=== PATIENT | male | born 1970 | race Caucasian/White ===

== ENCOUNTER 2018-05-15 08:14 | Emergency (ER) | payer SELFPAY ==
[2018-05-15] MEDS ORDERED: XYLOCAINE 1% MPF 5 mL INFILTRATI ONE (09:51)
[2018-05-15] MEDS ORDERED: IBUPROFEN PO ONE (09:51)
--- NOTE | 2018-05-15 09:58 | Emergency Department Report ---
Addendum entered and electronically signed by AME WAYNE PA 05/15/18 10:28: Patient reported to nursing staff that he has had his tetanus shot Mar 2018. Therefore patient does not need tetanus shot. Original Note: ED Laceration HPI - HPI Chief Complaint: Wound/Laceration Stated Complaint: CUT LEFT HAND Time Seen by Provider: 05/15/18 09:51 Occurred When: Today Severity: mild Laceration Symptoms: Yes Pain, No Foreign Body Sensation, No Numbness, No Weakness Other History: 48-year-old male comes in with left hand 2 inch laceration. Patient reports that he was cutting with a saw at home this morning when he cut his left hand. Patient reports he is prediabetic. Complains of pain 8 out of 10. Currently has allergy to penicillin. ED Review of Systems ROS: Stated complaint: CUT LEFT HAND Other details as noted in HPI Comment: All other systems reviewed and negative Skin: other (to left hand) ED Past Medical Hx - Past Medical History Previous Medical History?: Yes Additional medical history: pre diabetes - Surgical History Past Surgical History?: No - Social History Smoking Status: Never Smoker Substance Use Type: Alcohol - Medications Home Medications: Home Medications Medication Instructions Recorded Confirmed Last Taken Type Sulfamethoxazole/Trimethoprim 1 each PO BID 7 Days #14 tablet 05/15/18 Unknown Rx [Bactrim DS TAB] Laceration Physical Exam - Exam General: Vital signs noted. No distress. Alert and acting appropriately. Wound Length (cm): 2 Laceration Location: Upper Extremity (left hand dorsum side between first and second digit) Laceration Exam: Yes Normal Distal CMS, No Foreign Body, No Exposed Tendon, Vessel, or Nerve, No Tendon Injury ED Course Vital Signs 05/15/18 08:24 Temperature 97.8 F Pulse Rate 89 Respiratory 20 Rate Blood Pressure 134/74 O2 Sat by Pulse 98 Oximetry - Laceration /Wound Repair Left Dorsal Hand Wound Location: upper extremity (left hand) Wound Length (cm): 2 Wound's Depth, Shape: superficial Wound Explored: no foreign body removed Irrigated w/ Saline (ccs): 45 Betadine Prep?: Yes Anesthesia: 1% Lidocaine Volume Anesthetic (ccs): 2 Wound Debrided: minimal Wound Repaired With: sutures Suture Size/Type: 4:0 Number of Sutures: 4 Sterile Dressing Applied?: Yes Progress: Patient tolerated procedure well Critical care attestation.: If time is entered above; I have spent that time in minutes in the direct care of this critically ill patient, excluding procedure time. ED Disposition Clinical Impression: Laceration of hand Qualifiers: Encounter type: initial encounter Foreign body presence: without foreign body Laterality: left Qualified Code(s): S61.412A - Laceration without foreign body of left hand, initial encounter Disposition: TO HOME OR SELFCARE Is pt being admited?: No Does the pt Need Aspirin: No Condition: Stable Instructions: Suture Care (ED), Laceration (ED) Additional Instructions: Please take pain medication only as needed for pain management. Return back to the emergency room in 7 days to have sutures removed. Return sooner if there is any signs of infection such as fever, increased swelling and redness and/or purulent discharge from wound. Complete antibiotics as prescribed Por favor, tome medicamentos para el dolor solo cuando sea necesario para el manejo del dolor. Regrese a la rojelio de emergencias en 7 ferrer para que le retiren las suturas. Regrese antes si hay signos de infeccin, flaco fiebre, aumento de la hinchazn y enrojecimiento y / o secrecin purulenta de la herida. Completa los antibiticos segn lo prescrito. Prescriptions: Sulfamethoxazole/Trimethoprim [Bactrim DS TAB] 1 each PO BID 7 Days #14 tablet Referrals: GRZEGORZ VALLECILLO MD [Primary Care Provider] - 3-5 Days Forms: Work/School Release Form(ED) Print Language: KOREAN
[2018-05-15] MEDS ORDERED: BOOSTRIX IM ONE (10:11)
[2018-05-16 13:42] VITALS: BP 134/74
== END 2018-05-15 10:37 | disposition home or self-care (01) ==
LOC: ED 08:14
DX: S61.412A Laceration without foreign body of left hand, initial encounter (principal); Z88.0 Allergy status to penicillin; W26.8XXA Contact with other sharp object(s), not elsewhere classified, initial encounter; Y93.89 Activity, other specified; Y92.89 Other specified places as the place of occurrence of the external cause; Y99.8 Other external cause status
CPT/HCPCS: 90715; 99283

== ENCOUNTER 2018-05-22 07:17 | Emergency (ER) | payer SELFPAY ==
--- NOTE | 2018-05-22 09:13 | Emergency Department Report ---
Suture/Staple Removal - [facility] Chief Complaint: Laceration/Recheck/Suture Stated Complaint: STITCHES REMOVED Time Seen by Provider: 05/22/18 09:11 When Sutures or [place] Placed: 8-10 Days Ago Wound Location: left dorsum hand ED Review of Systems ROS: Stated complaint: STITCHES REMOVED Other details as noted in HPI Constitutional: denies: chills, fever Eyes: denies: eye pain, eye discharge, vision change ENT: denies: ear pain, throat pain Respiratory: denies: cough, shortness of breath, wheezing Cardiovascular: denies: chest pain, palpitations Endocrine: no symptoms reported Gastrointestinal: denies: abdominal pain, nausea, diarrhea Genitourinary: denies: urgency, dysuria Musculoskeletal: denies: back pain, joint swelling, arthralgia Skin: denies: rash, lesions Neurological: denies: headache, weakness, paresthesias Psychiatric: denies: anxiety, depression Hematological/Lymphatic: denies: easy bleeding, easy bruising ED Past Medical Hx - Past Medical History Previous Medical History?: No Additional medical history: pre diabetes - Surgical History Past Surgical History?: No - Social History Smoking Status: Never Smoker Substance Use Type: None - Medications Home Medications: Home Medications Medication Instructions Recorded Confirmed Last Taken Type Sulfamethoxazole/Trimethoprim 1 each PO BID 7 Days #14 tablet 05/15/18 Unknown Rx [Bactrim DS TAB] Suture Removal Exam - Exam General: Vital signs noted. No distress. Alert and acting appropriately. Wound: No Pathologic Erythema, No Tenderness, No Drainage, No Pus, No Wound Dehiscence Other Systems: All other systems reviewed and are unremarkable. ED Course Vital Signs 05/22/18 07:44 Temperature 97.8 F Pulse Rate 69 Respiratory 20 Rate Blood Pressure 151/91 O2 Sat by Pulse 99 Oximetry - Reevaluation(s) Reevaluation #1: 05/22/18 10:28 sutures removed and steri-strips applied ED Recheck MDM - Differential Diagnosis Suture/Staple Removal (4 sutures removed from left dorsum hand) Suture Removal - Medical Decision Making During the course of ED, sutures were removed and steri-strips applied. Patient was sent home with instructions on skin adhesive wound care. He verbalized understanding Critical care attestation.: If time is entered above; I have spent that time in minutes in the direct care of this critically ill patient, excluding procedure time. ED Disposition Clinical Impression: Encounter for removal of sutures Disposition: DC-01 TO HOME OR SELFCARE Is pt being admited?: No Does the pt Need Aspirin: No Condition: Stable Instructions: Suture Removal (ED) Referrals: GRZEGORZ VALLECILLO MD [Primary Care Provider] - 3-5 Days Time of Disposition: 09:12
== END 2018-05-22 09:16 | disposition home or self-care (01) ==
LOC: ED 07:17